=== PATIENT | male | born 1970 | race Caucasian/White ===

== ENCOUNTER → 2020-11-15 | Outpatient (CLI) | payer OTHER ==
[~2020-11-15] MED LIST: FLOMAX0.4 MG PO; NORCO 7.5-3251 EACH PO; TORADOL 10 MG T10 MG PO
== END ==
LOC: LAB 23:03
DX: Z02.83 Encounter for blood-alcohol and blood-drug test (principal)
CPT/HCPCS: 36415

== ENCOUNTER → 2021-03-24 | Outpatient (CLI) | payer OTHER | LOC: CT 14:41 | DX: I10 Essential (primary) hypertension (principal); R10.13 Epigastric pain | CPT/HCPCS: 36415; 74150; 82565; 84520; Q9967 ==

== ENCOUNTER → 2021-05-12 | Outpatient (CLI) | payer OTHER | LOC: HEART 5 08:15 | DX: R06.02 Shortness of breath (principal) | CPT/HCPCS: 78452; A9502; J2785 ==

== ENCOUNTER 2021-05-30 22:57 | Emergency (ER) | payer OTHER ==
[2021-05-30 23:42] LABS: HEMOGLOBIN 16.3 gm/dl (14.0-17.5); RED BLOOD COUNT 5.22 M/UL (4.20-5.50); WHITE BLOOD COUNT 7.8 K/UL (4.5-11.0)
[2021-05-31] LABS: BUN/CREATININE RATIO 18 (0-10)
== END 2021-05-31 05:00 | disposition home or self-care (01) ==
LOC: ER1 22:57
PROVIDERS: Physician Assistant Medical
DX: S09.90XA Unspecified injury of head, initial encounter (principal); S91.012A Laceration without foreign body, left ankle, initial encounter; S20.219A Contusion of unspecified front wall of thorax, initial encounter; I25.10 Atherosclerotic heart disease of native coronary artery without angina pectoris; I10 Essential (primary) hypertension; Z95.1 Presence of aortocoronary bypass graft; V19.40XA Pedal cycle driver injured in collision with unspecified motor vehicles in traffic accident, initial encounter
CPT/HCPCS: 12002; 70450; 71045; 71260; 73610; 73630; 80053; 85025; 99284; Q9967

== ENCOUNTER 2021-06-07 13:08 | Emergency (ER) | payer OTHER | END 2021-06-07 14:13 | disposition home or self-care (01) | LOC: ER1 13:08 | DX: S91.012D Laceration without foreign body, left ankle, subsequent encounter (principal); I25.10 Atherosclerotic heart disease of native coronary artery without angina pectoris; V89.2XXD Person injured in unspecified motor-vehicle accident, traffic, subsequent encounter | CPT/HCPCS: 99281 ==